=== PATIENT | female | born 1980 | race Caucasian/White ===

== ENCOUNTER 2018-05-02 09:15 | Day surgery (SDC) | payer BC ==
[~2018-05-02 09:15] MED LIST: Lidocaine 1%/Sod Bicarbonate in NS 8.4% 1 ML Syringe IDERM PRN; Sodium Chloride 0.9% 10 ML Syringe FLUSH PRN
[2018-05-02] MEDS: Lactated Ringers 1,000 ML IV SCH ×2 (09:45→11:17)
[2018-05-02] MEDS ORDERED: Scopolamine 1.5 MG Transdermal Patch TRDERM ONE (09:49)
--- NOTE | 2018-05-02 09:49 | PCM.PREANE ---
Preanesthetic Assessment - Anesthesia/Transfusion/Family Hx Anesthesia History: Prior Anesthesia Reaction (PONV- scopalamine patch placed.) Family History of Anesthesia Reaction: No Transfusion History: Prior Transfusion Without Reaction Intubation History: Unknown - Review of Systems General: Fatigue (Patient states sad since news of miscarriage and appetite and energy in down.) Pulmonary: No Symptoms Cardiovascular: No Symptoms Gastrointestinal: No Symptoms, Decreased Appetite, Nausea Neurological: No Symptoms (motion sickness on occasion/history of lower back pain) Other: Reports: None, Easy Bruising - Physical Assessment NPO Status Date: 05/01/18 NPO Status Time: 23:59 Pulse: 72 O2 Sat by Pulse Oximetry: 98 Respiratory Rate: 16 Blood Pressure: 126/76 Temperature: 36.4 C Height: 1.7 m Weight: 122 kg ASA Class: 2 Mental Status: Alert & Oriented x3 Airway Class: Mallampati = 2 Dentition: Reports: Normal Dentition, Caries Thyro-Mental Finger Breadths: 3 Mouth Opening Finger Breadths: 2 ROM/Head Extension: Full Lungs: Clear to Auscultation, Normal Respiratory Effort Cardiovascular: Regular Rate, Regular Rhythm, No Murmurs - Lab Values: Laboratory Last Values WBC 6.98 K/mm3 (3.98-10.04) 05/01/18 10:58 RBC 4.75 M/mm3 (3.98-5.22) 05/01/18 10:58 Hgb 12.9 gm/L (11.2-15.7) 05/01/18 10:58 Hct 39.9 % (34.1-44.9) 05/01/18 10:58 MCV 84.0 fl (79.4-94.8) 05/01/18 10:58 MCH 27.2 pg (25.6-32.2) 05/01/18 10:58 MCHC 32.3 g/dl (32.2-35.5) 05/01/18 10:58 RDW Std Deviation 41.8 fL (36.4-46.3) 05/01/18 10:58 Plt Count 362 K/mm3 (182-369) 05/01/18 10:58 MPV 8.8 fl (9.4-12.3) L 05/01/18 10:58 Neut % (Auto) 61.3 % (34.0-71.1) 05/01/18 10:58 Lymph % (Auto) 28.7 % (19.3-51.7) 05/01/18 10:58 [place] % (Auto) 7.7 % (4.7-12.5) 05/01/18 10:58 Eos % (Auto) 1.9 (0.7-5.8) 05/01/18 10:58 Baso % (Auto) 0.3 % (0.1-1.2) 05/01/18 10:58 Neut # (Auto) 4.28 K/mm3 (1.56-6.13) 05/01/18 10:58 Lymph # (Auto) 2.00 K/mm3 (1.18-3.74) 05/01/18 10:58 [place] # (Auto) 0.54 K/mm3 (0.24-0.36) H 05/01/18 10:58 Eos # (Auto) 0.13 K/mm3 (0.04-0.36) 05/01/18 10:58 Baso # (Auto) 0.02 K/mm3 (0.01-0.08) 05/01/18 10:58 Urine Color Yellow (Yellow) 05/01/18 10:58 Urine Appearance Clear (Clear) 05/01/18 10:58 Urine pH 6.5 (5.0-8.0) 05/01/18 10:58 Ur Specific [place] 1.020 (1.005-1.030) 05/01/18 10:58 Urine Protein Negative (Negative) 05/01/18 10:58 Urine Glucose (UA) Negative (Negative) 05/01/18 10:58 Urine Ketones Negative (Negative) 05/01/18 10:58 Urine Occult Blood Negative (Negative) 05/01/18 10:58 Urine Nitrite Negative (Negative) 05/01/18 10:58 Urine Bilirubin Negative (Negative) 05/01/18 10:58 Urine Urobilinogen 0.2 (0.2-1.0) 05/01/18 10:58 Ur Leukocyte Esterase Negative (Negative) 05/01/18 10:58 Blood Type O POSITIVE 05/01/18 10:58 Above labs reviewed and noted and within acceptable ranges to proceed with scheduled procedure. - Allergies Allergies/Adverse Reactions: Allergies Allergy/AdvReac Type Severity Reaction Status Date / Time meperidine [From [facility]] Allergy Nausea Verified 05/01/18 14:51 - Anesthesia Plan Pre-Op Medication Ordered: None - Acknowledgements Anesthesia Type Planned: General Anesthesia, MAC Pt an Appropriate Candidate for the Planned Anesthesia: Yes Alternatives and Risks of Anesthesia Discussed w Pt/Guardian: Yes Pt/Guardian Understands and Agrees with Anesthesia Plan: Yes PreAnesthesia Questionnaire HEENT History: Reports: Hard of Hearing, Impaired Vision, 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) Other HEENT History: has hearing aids, glasses Cardiovascular History: Reports: None Respiratory History: Reports: None Gastrointestinal History: Reports: Irritable Bowel Syndrome Genitourinary History: Reports: None 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 , 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) Other OB/BYN History: uterine hemorrhage Neurological History: Reports: None Psychiatric History: Reports: None Endocrine/Metabolic History: Reports: None Hematologic History: Reports: None Oncologic (Cancer) History: Reports: None Dermatologic History: Reports: None - Past Surgical History HEENT Surgical History: Reports: Tonsillectomy Cardiovascular Surgical History: Reports: None Respiratory Surgical History: Reports: None GI Surgical History: Reports: Bariatric Procedure Female Surgical History: Reports: None Male Surgical History: Reports: None Endocrine Surgical History: Reports: None Neurological Surgical History: Reports: None Musculoskeletal Surgical History: Reports: 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) Other Musculoskeletal Surgeries/Procedures:: bunion surgery Oncologic Surgical History: Reports: None Dermatological Surgical History: Reports: None - SUBSTANCE USE Smoking Status *Q: Never Smoker Recreational Drug Use History: No - HOME MEDS Home Medications: Home Meds PNV95/Ferrous Fumarate/FA [ Vitamins Tablet] 1 tab PO DAILY 05/01/18 [ History] - CURRENT (IN HOUSE) MEDS Current Meds: Current Medications Lactated Ringer's (Ringers, Lactated) 1,000 mls @ 125 mls/hr IV ASDIRECTED RHETT Stop: 05/02/18 23:00 Lidocaine/Sodium Bicarbonate (Buffered Lidocaine 1% In Ns 8.4%) 0.25 ml IDERM ONETIME PRN PRN Reason: Prior to IV Start Stop: 05/02/18 18:00 Sodium Chloride (Saline Flush) 10 ml FLUSH ASDIRECTED PRN PRN Reason: Keep Vein Open Stop: 05/02/18 18:00
[2018-05-02] MEDS ORDERED: Propofol 200 MG/20 ML SDV ONE ×2 (10:08→10:24)
[2018-05-02] MEDS ORDERED: Midazolam 1 MG/ML 2 ML SDV ONE ×3 (10:10→10:30)
[2018-05-02] MEDS ORDERED: fentaNYL 100 MCG/2 ML SDV ONE ×2 (10:12→10:26)
[2018-05-02] MEDS ORDERED: Ketorolac 30 MG/ML SDV ONE (10:16)
[2018-05-02] MEDS ORDERED: Ondansetron 4 MG/2 ML SDV ONE (10:17)
[2018-05-02] MEDS ORDERED: Ondansetron 4 MG/2 ML SDV IVPUSH PRN (10:45)
--- NOTE | 2018-05-02 10:48 | PCM.OPNOTE ---
- General Post-Op/Procedure Note Date of Surgery/Procedure: 05/02/18 Operative Procedure(s): Dilation and suction curettage Findings: Tissue removed consistent with products of conception. Uterus upper limits normal size. No adnexal abnormalities noted. Pre Op Diagnosis: Blighted ovum Post-Op Diagnosis: Same Anesthesia Technique: MAC Primary Surgeon: Kolby Centeno Secondary Surgeon: Sara Escamilla Anesthesia Provider: Shama Miller Fluid Replacement, Intraop: 700 EBL in mLs: 25 Complications: None Condition: Good Free Text/Narrative:: Surgery duration 4 minutes Procedure: The patient was taken to the operating room and placed in a supine position operating table. She received 2 g of Ancef preoperatively for infection prophylaxis and had sequential compression stockings in place for DVT prophylaxis. After adequate MAC patient was placed in a dorsal lithotomy position. A weighted speculum was placed in the vagina. Cervix is found to be dilated to approximately 0.8 centimeters. Uterus was sounded to approximately 11 cm. It was found to be anterior and mid position. An 8 mm suction curette was then introduced in routine fashion the endometrial cavity was evacuated. Moderate amount tissue was obtained. Findings consistent with products of conception. A medium size sharp curet was introduced and very careful fashion the endometrial cavity was curetted. It was be clear of any further tissue. The suction curet was then reintroduced and small and blood was removed. No further tissue was removed. This point the D&C was discontinued. The single-toothed tenaculum used to stabilize the anterior lip the cervix was removed. Blood was removed from the vagina with a stick sponge and the weighted speculum was removed from the vagina. The patient was discharged from the operating room in good condition.
--- NOTE | 2018-05-02 10:49 | PCM48HPAN ---
Post Anesthesia Note - EVALUATION WITHIN 48HRS OF ANESTHETIC Vital Signs in Normal Range: Yes Patient Participated in Evaluation: Yes Respiratory Function Stable: Yes Airway Patent: Yes Cardiovascular Function Stable: Yes Hydration Status Stable: Yes Pain Control Satisfactory: Yes Nausea and Vomiting Control Satisfactory: Yes Mental Status Recovered: Yes Pulse Rate: 74 SaO2: 96 Resp Rate: 20 Temperature: 36.4 C Blood Pressure: 112/52
[2018-05-02] MEDS ORDERED: HYDROmorphone 0.5 MG/0.5 ML Syringe IVPUSH ONE (11:07)
[2018-05-02] MEDS ORDERED: diphenhydrAMINE 50 MG/ML SDV IVPUSH SCH (11:15)
== END 2018-05-02 13:10 | disposition home or self-care (01) ==
LOC: JD.SDS 09:15
PROVIDERS: ATTEND Obstetrics & Gynecology
DX: O02.0 Blighted ovum and nonhydatidiform mole (principal); Z79.899 Other long term (current) drug therapy
CPT/HCPCS: 36415; 59812; 81003; 85025; 86900; 86901; A9270; J1885; J2250; J2405; J2704; J3010; J7120; 01965

== ENCOUNTER 2019-10-15 05:30 | Inpatient (IN) | payer BC ==
[~2019-10-15 05:30] MED LIST changes: -Lidocaine 1%/Sod Bicarbonate in NS 8.4% 1 ML Syringe IDERM PRN; +Oxytocin/Lactated Ringers 10 UNIT/1,000 ML BAG IV SCH; +Scopolamine 1.5 MG Transdermal Patch TRDERM SCH
[2019-10-15] MEDS: Lactated Ringers 1,000 ML IV SCH ×2 (06:01→06:51)
[2019-10-15] MEDS ORDERED: Citric Acid/Sodium Citrate Solution 30 ML Cup PO ONE (06:30)
[2019-10-15] MEDS ORDERED: Metoclopramide 10 MG/2 ML SDV IVPUSH ONE (06:30)
[2019-10-15] MEDS ORDERED: Citric Acid/Sodium Citrate Solution 30 ML Cup ONE (06:47)
[2019-10-15] MEDS ORDERED: Lactated Ringers 1,000 ML ONE (06:47)
[2019-10-15] MEDS ORDERED: Metoclopramide 10 MG/2 ML SDV ONE (06:47)
[2019-10-15] MEDS ORDERED: Ketorolac 30 MG/ML SDV ONE (07:17)
[2019-10-15] MEDS ORDERED: Lactated Ringers 2,000 ML ONE (07:17)
[2019-10-15] MEDS ORDERED: ceFAZolin 1 GM Vial ONE (07:17)
[2019-10-15] MEDS ORDERED: Ondansetron 4 MG/2 ML SDV ONE (07:17)
[2019-10-15] MEDS ORDERED: Oxytocin 10 Units/1 ML SDV ONE (07:17)
[2019-10-15] MEDS ORDERED: Morphine PF 10 MG/10 ML SDV ONE (07:18)
[2019-10-15] MEDS ORDERED: ceFAZolin 1 GM in Premix Bag 1 BAG IV ONE (07:30)
[2019-10-15] MEDS ORDERED: ceFAZolin 2 GM in Premix Bag 1 BAG IV ONE (07:30)
--- NOTE | 2019-10-15 07:36 | PCM.PREANE ---
Preanesthetic Assessment - Anesthesia/Transfusion/Family Hx Anesthesia History: Prior Anesthesia Reaction Type of Anesthesia Reaction: Excessive Nausea/Vomiting Family History of Anesthesia Reaction: No Transfusion History: Prior Transfusion Without Reaction Intubation History: Unknown - Review of Systems General: No Symptoms Pulmonary: No Symptoms Cardiovascular: No Symptoms Gastrointestinal: No Symptoms Neurological: No Symptoms Other: Reports: Easy Bruising (1800) - Physical Assessment NPO Status Date: 10/14/19 NPO Status Time: 18:00 Vital Signs: Last Vital Signs Temp 36.6 C 10/15/19 05:47 Pulse 76 10/15/19 05:47 Resp 14 10/15/19 05:47 BP 122/91 H 10/15/19 06:03 Pulse Ox 98 10/15/19 05:47 Height: 1.7 m Weight: 124.738 kg ASA Class: 2 Mental Status: Alert & Oriented x3 Airway Class: Mallampati = 2 Dentition: Reports: Normal Dentition, Caries Thyro-Mental Finger Breadths: 3 Mouth Opening Finger Breadths: 3 ROM/Head Extension: Full Lungs: Clear to Auscultation, Normal Respiratory Effort Cardiovascular: Regular Rate, Regular Rhythm, No Murmurs - Lab Values: Laboratory Last Values WBC 6.57 K/mm3 (3.98-10.04) 10/15/19 05:50 RBC 3.99 M/mm3 (3.98-5.22) 10/15/19 05:50 Hgb 11.0 gm/dl (11.2-15.7) L 10/15/19 05:50 Hct 34.8 % (34.1-44.9) 10/15/19 05:50 MCV 87.2 fl (79.4-94.8) 10/15/19 05:50 MCH 27.6 pg (25.6-32.2) 10/15/19 05:50 MCHC 31.6 g/dl (32.2-35.5) L 10/15/19 05:50 RDW Std Deviation 46.1 fL (36.4-46.3) 10/15/19 05:50 Plt Count 311 K/mm3 (182-369) 10/15/19 05:50 MPV 9.0 fl (9.4-12.3) L 10/15/19 05:50 Neut % (Auto) 64.2 % (34.0-71.1) 10/15/19 05:50 Lymph % (Auto) 25.7 % (19.3-51.7) 10/15/19 05:50 [place] % (Auto) 9.1 % (4.7-12.5) 10/15/19 05:50 Eos % (Auto) 0.6 (0.7-5.8) L 10/15/19 05:50 Baso % (Auto) 0.2 % (0.1-1.2) 10/15/19 05:50 Neut # (Auto) 4.22 K/mm3 (1.56-6.13) 10/15/19 05:50 Lymph # (Auto) 1.69 K/mm3 (1.18-3.74) 10/15/19 05:50 [place] # (Auto) 0.60 K/mm3 (0.24-0.36) H 10/15/19 05:50 Eos # (Auto) 0.04 K/mm3 (0.04-0.36) 10/15/19 05:50 Baso # (Auto) 0.01 K/mm3 (0.01-0.08) 10/15/19 05:50 Blood Type O POSITIVE 10/15/19 05:50 Gel Antibody Screen Negative 10/15/19 05:50 - Allergies Allergies/Adverse Reactions: Allergies Allergy/AdvReac Type Severity Reaction Status Date / Time adhesive Allergy Hives Verified 10/14/19 14:26 meperidine [From Demerol] AdvReac Nausea Verified 10/14/19 14:26 - Anesthesia Plan Pre-Op Medication Ordered: None - Acknowledgements Anesthesia Type Planned: Spinal Pt an Appropriate Candidate for the Planned Anesthesia: Yes Alternatives and Risks of Anesthesia Discussed w Pt/Guardian: Yes Pt/Guardian Understands and Agrees with Anesthesia Plan: Yes PreAnesthesia Questionnaire HEENT History: Reports: Hard of Hearing, Impaired Vision, 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) Other HEENT History: has hearing aids, glasses Cardiovascular History: Reports: None Respiratory History: Reports: None Gastrointestinal History: Reports: Irritable Bowel Syndrome Genitourinary History: Reports: None 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: , 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 , 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) Other OB/BYN History: uterine hemorrhage after SAB, D&C x3, Section in 2017 Neurological History: Reports: None Psychiatric History: Reports: Anxiety Endocrine/Metabolic History: Reports: None Hematologic History: Reports: None Oncologic (Cancer) History: Reports: None Dermatologic History: Reports: None - Past Surgical History HEENT Surgical History: Reports: Adenoidectomy, Tonsillectomy Respiratory Surgical History: Reports: None GI Surgical History: Reports: Bariatric Procedure, Cholecystectomy, EGD Other GI Surgeries/Procedures: Gastric Bypass Female Surgical History: Reports: Section, D&C, 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) Other Female Surgeries/Procedures: Hysterscopy to remove uterine septum Endocrine Surgical History: Reports: None Musculoskeletal Surgical History: Reports: 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) Other Musculoskeletal Surgeries/Procedures:: bunion surgery - SUBSTANCE USE Smoking Status *Q: Never Smoker Second Hand Smoke Exposure: No Recreational Drug Use History: No - HOME MEDS Home Medications: Home Meds Pnv No.95/Ferrous Fum/Folic AC [ Vitamins Tablet] 1 tab PO DAILY [History] Folic Acid 1 mg PO DAILY 10/14/19 [History] Iron 18 mg PO DAILY 10/14/19 [History] - CURRENT (IN HOUSE) MEDS Current Meds: Current Medications Cefazolin Sodium/Dextrose 2 gm (/ Premix) 50 mls @ 100 mls/hr IV ONETIME ONE Stop: 10/15/19 07:59 Cefazolin Sodium/Dextrose 1 gm (/ Premix) 50 mls @ 100 mls/hr IV ONETIME ONE Stop: 10/15/19 07:59 Lactated Ringer's (Ringers, Lactated) 1,000 mls @ 125 mls/hr IV ASDIRECTED RHETT Last Admin: 10/15/19 06:51 Dose: 125 mls/hr Oxytocin/Lactated Ringer's (Pitocin In Lr 10 Units/1,000 Ml) 10 unit in 1,000 mls @ 100 mls/hr IV ASDIRECTED RHETT; Protocol Scopolamine (Transderm-Scop) 1.5 mg TRDERM ONETIME RHETT Stop: 10/15/19 16:00 Sodium Chloride (Saline Flush) 10 ml FLUSH ASDIRECTED PRN PRN Reason: Keep Vein Open Discontinued Medications Citric Acid/Sodium Citrate (Bicitra Solution) 30 ml PO ONETIME ONE Stop: 10/15/19 06:31 Last Admin: 02/27/20 06:51 Dose: 30 ml Metoclopramide HCl (Reglan) 10 mg IVPUSH ONETIME ONE Stop: 10/15/19 06:31 Last Admin: 10/15/19 06:52 Dose: 10 mg
[2019-10-15] MEDS ORDERED: ePHEDrine Sulfate/0.9% NaCl/Pf 25 MG/5 ML SYRINGE IV ONE ×2 (08:12→08:38)
[2019-10-15] MEDS ORDERED: Haloperidol Lactate 5 MG/ML SDV IVPUSH ONE (08:16)
[2019-10-15] MEDS ORDERED: fentaNYL 100 MCG/2 ML SDV IVPUSH PRN (08:16)
[2019-10-15] MEDS ORDERED: diphenhydrAMINE 50 MG/ML SDV IVPUSH PRN (08:16)
[2019-10-15] MEDS ORDERED: ePHEDrine 50 MG/ML SDV IVPUSH PRN (08:16)
[2019-10-15] MEDS ORDERED: Ondansetron 4 MG/2 ML SDV IVPUSH PRN (08:16)
[2019-10-15] MEDS ORDERED: HYDROmorphone 0.5 MG/0.5 ML Syringe IVPUSH PRN (08:16)
[2019-10-15] MEDS ORDERED: Phenylephrine 1 MG in Sodium Chloride 0.9% 10 ML IV SCH (08:30)
--- NOTE | 2019-10-15 09:04 | PCM.OPNOTE ---
- General Post-Op/Procedure Note Date of Surgery/Procedure: 10/15/19 Operative Procedure(s): Repeat low transverse Findings: Minimal scarring between the rectus and fascia. Minimal scar tissue between the bladder and uterus. Baby girl in a vertex presentation. APGARS of 8 & 9. Weight of 8 lbs 7 oz. Normal appearance of the uterus, fallopian tubes, and ovaries. Pre Op Diagnosis: Hx of . 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 Speed/safety of procedure Pathology: Cord blood collected. Placenta discarded Fluid Replacement, Intraop: 900 Output, Urine Amount: 100 EBL in mLs: 700 Complications: None Condition: Good Free Text/Narrative:: The risks, benefits, indications, potential complications, and alternatives were explained to the patient and informed consent obtained. After induction of anesthesia, the patient was placed in a supine position and then draped and prepped in the usual sterile manner. A Pfannenstiel incision was made and carried down through the subcutaneous tissue to the fascia. Fascial incision was made and extended transversely. The fascia was from the underlying rectus tissue superiorly and inferiorly. The peritoneum was identified and entered. Peritoneal incision was extended longitudinally. No bladder flap made. A low transverse uterine incision was made sharply with a scalpel and extended bluntly in a cephalocaudad direction. A baby girl was delivered from a vertex presentation with APGARS as above. After the umbilical cord was clamped and cut cord blood was obtained for evaluation. The placenta was removed intact and appeared normal. The uterus was exteriorized and cleared of clots. The uterine outline, tubes and ovaries appeared normal. The uterine incision was closed with running locked sutures of 0 Vicryl. Hemostasis was obtained with a second imbricating layer of 0 vicryl. The uterus was then placed back into the abdomen. The infracolic gutters were cleared of blood clots. The fascia was then reapproximated with running sutures of 0 Vicryl. The subcutaneous tissue was irrigated with sterile warm normal saline, hemostasis obtained with cautery. This layer was also closed with a running 0 vicryl. The skin was reapproximated with running Subcuticular 4-0 monocryl sutures. Instrument, sponge, and needle counts were correct prior the abdominal closure and at the conclusion of the case.
--- NOTE | 2019-10-15 09:07 | PCM.POSTAN ---
POST ANESTHESIA ASSESSMENT - MENTAL STATUS Mental Status: Alert - VITAL SIGNS Vital Signs: Last Vital Signs Temp 97.3 10/15/19 Pulse 58 10/15/19 Resp 12 10/15/19 BP 107/52 10/15/19 Pulse Ox 94 10/15/19 - RESPIRATORY Respiratory Status: Respiratory Rate WNL, Airway Patent, O2 Saturation Stable - CARDIOVASCULAR CV Status: Pulse Rate WNL, Blood Pressure Stable - GASTROINTESTINAL GI Status: No Symptoms - POST OP HYDRATION Hydration Status: Adequate & Stable
[2019-10-15] MEDS ORDERED: Naloxone 0.4 MG/ML SDV IVPUSH PRN (11:25)
[2019-10-15] MEDS ORDERED: Acetaminophen/oxyCODONE 325-5 MG Tab PO PRN (11:25)
[2019-10-15] MEDS ORDERED: Ondansetron 4 MG/2 ML SDV IV PRN (11:25)
[2019-10-15] MEDS ORDERED: Dextrose 5%-Lactated Ringers 1,000 ML IV SCH (11:25)
[2019-10-15] MEDS: Ketorolac 30 MG/ML SDV IVPUSH SCH ×2 (14:55→20:41)
[2019-10-16] MEDS: Ketorolac 30 MG/ML SDV IVPUSH SCH (04:18)
--- NOTE | 2019-10-16 06:58 | PCM.PNPP ---
- General Info Date of Service: 10/16/19 Functional Status: Reports: Pain Controlled, Tolerating Diet, Ambulating - Review of Systems General: Reports: No Symptoms Pulmonary: Reports: No Symptoms Cardiovascular: Reports: No Symptoms Gastrointestinal: Reports: Abdominal Pain (managed with medications) Genitourinary: Reports: No Symptoms Musculoskeletal: Reports: No Symptoms - Patient Data Vital Signs - Most Recent: Last Vital Signs Temp 37.2 C 10/16/19 04:26 Pulse 73 10/16/19 04:27 Resp 18 10/16/19 06:00 BP 125/64 10/16/19 04:26 Pulse Ox 97 10/16/19 06:00 Weight - Most Recent: 124.738 kg I&O - Last 24 Hours: Intake & Output 10/15/19 10/15/19 10/16/19 14:59 22:59 06:59 Intake Total 250 1380 1000 Output Total 209 018 2003 Balance 50 830 -1025 Lab Results - Last 24 Hours: Laboratory Results - last 24 hr 10/15/19 10/16/19 Range/Units 05:50 05:40 WBC 6.75 (3.98-10.04) K/mm3 RBC 3.24 L (3.98-5.22) M/mm3 Hgb 8.9 L D (11.2-15.7) gm/dl Hct 29.5 L (34.1-44.9) % MCV 91.0 D (79.4-94.8) fl MCH 27.5 (25.6-32.2) pg MCHC 30.2 L (32.2-35.5) g/dl RDW Std Deviation 48.4 H (36.4-46.3) fL Plt Count 243 (182-369) K/mm3 MPV 9.8 (9.4-12.3) fl RPR Non-reactive (NONREACTIVE) Med Orders - Current: Current Medications Ibuprofen (Motrin) 600 mg PO Q6H PRN PRN Reason: mild pain or fever Naloxone HCl (Narcan) 0.1 mg IVPUSH SEECOMMENT PRN PRN Reason: Respiratory Depression Ondansetron HCl (Zofran) 4 mg IV Q8H PRN PRN Reason: Nausea/Vomiting Oxycodone/Acetaminophen (Percocet 325-5 Mg) 1 tab PO Q4H PRN PRN Reason: Pain (moderate 4-6) Oxycodone/Acetaminophen (Percocet 325-5 Mg) 2 tab PO Q4H PRN PRN Reason: Pain (severe 7-10) Discontinued Medications Citric Acid/Sodium Citrate (Bicitra Solution) 30 ml PO ONETIME ONE Stop: 10/15/19 06:31 Last Admin: 10/15/19 06:51 Dose: 30 ml Diphenhydramine HCl (Benadryl) 25 mg IVPUSH Q6H PRN PRN Reason: pruritis Stop: 10/15/19 12:00 Ephedrine Sulfate (Ephedrine Sulfate) 5 mg IVPUSH ASDIRECTED PRN PRN Reason: Hypotension Stop: 10/15/19 12:00 Fentanyl (Sublimaze) 50 mcg IVPUSH Q5M PRN PRN Reason: Pain Stop: 10/15/19 12:00 Haloperidol Lactate (Haldol) 1 mg IVPUSH ONETIME ONE Stop: 10/15/19 08:17 Last Admin: 10/15/19 11:40 Dose: Not Given Hydromorphone HCl (Dilaudid) 0.5 mg IVPUSH Q15M PRN PRN Reason: Pain (severe 7-10) Stop: 10/15/19 12:00 Cefazolin Sodium/Dextrose 2 gm (/ Premix) 50 mls @ 100 mls/hr IV ONETIME ONE Stop: 10/15/19 07:59 Last Admin: 10/16/19 00:56 Dose: Not Given Cefazolin Sodium/Dextrose 1 gm (/ Premix) 50 mls @ 100 mls/hr IV ONETIME ONE Stop: 10/15/19 07:59 Last Admin: 10/16/19 00:56 Dose: Not Given Lactated Ringer's (Ringers, Lactated) 1,000 mls @ 125 mls/hr IV ASDIRECTED RHETT Last Admin: 10/15/19 06:51 Dose: 125 mls/hr Oxytocin/Lactated Ringer's (Pitocin In Lr 10 Units/1,000 Ml) 10 unit in 1,000 mls @ 100 mls/hr IV ASDIRECTED RHETT; Protocol Phenylephrine HCl 1 mg/ Sodium (Chloride) 10.1 mls @ 1 mls/sec IV TITRATE HRETT; Protocol Stop: 10/15/19 12:00 Dextrose/Lactated Ringer's (Dextrose 5%-Lactated Ringers) 1,000 mls @ 125 mls/ hr IV ASDIRECTED RHETT Stop: 10/15/19 19:24 Last Admin: 10/15/19 12:38 Dose: 125 mls/hr Ketorolac Tromethamine (Toradol) 30 mg IVPUSH Q6H RHETT Stop: 10/16/19 02:46 Last Admin: 10/16/19 04:18 Dose: 30 mg Metoclopramide HCl (Reglan) 10 mg IVPUSH ONETIME ONE Stop: 10/15/19 06:31 Last Admin: 10/15/19 06:52 Dose: 10 mg Ondansetron HCl (Zofran) 4 mg IVPUSH ONETIME PRN PRN Reason: Nausea/Vomiting Stop: 10/15/19 12:00 Scopolamine (Transderm-Scop) 1.5 mg TRDERM ONETIME RHETT Stop: 10/15/19 16:00 Last Admin: 10/15/19 07:36 Dose: 1.5 mg Sodium Chloride (Saline Flush) 10 ml FLUSH ASDIRECTED PRN PRN Reason: Keep Vein Open - Interaction Infant Disposition, : in Room with Family Infant Interaction: Holding Feeding: Bottle Fed Support Person: - Recovery Exam Fundal Tone: Firm Fundal Level: At Umbilicus Fundal Placement: Midline Lochia Amount: Small Lochia Color: Rubra/Red Perineum Description: Intact, Minimal Bruising/Swelling Episiotomy/Laceration: None - Exam General: Alert, Oriented, Cooperative Lungs: Clear to Auscultation, Normal Respiratory Effort Cardiovascular: Regular Rate, Regular Rhythm GI/Abdominal Exam: Soft, Tender (appropriate post op) Extremities: Normal Inspection Skin: Warm, Dry, Intact Wound/Incisions: Healing Well, No Drainage - Problem List & Annotations (1) History of SNOMED Code(s): 146949771 Code(s): Z98.891 - HISTORY OF UTERINE SCAR FROM PREVIOUS SURGERY Status: Acute Current Visit: Yes (2) S/P repeat low transverse SNOMED Code(s): 511958601, 02291498, 877399462, 010334917, 523186722 Code(s): Z98.891 - HISTORY OF UTERINE SCAR FROM PREVIOUS SURGERY Status: Acute Current Visit: Yes - Problem List Review Problem List Initiated/Reviewed/Updated: Yes - My Orders Last 24 Hours: My Active Orders 10/15/19 11:25 Activity as Tolerated [RC] .Routine Antiembolic Devices [RC] PER UNIT ROUTINE Communication Order [RC] PER UNIT ROUTINE Intake and Output [RC] Q4H Notify Provider Intake and Out [RC] ASDIRECTED RT Incentive Spirometry [RC] Q2HWA Acetaminophen/oxyCODONE [Percocet 325-5 MG] 1 tab PO Q4H PRN Acetaminophen/oxyCODONE [Percocet 325-5 MG] 2 tab PO Q4H PRN Naloxone [Narcan] 0.1 mg IVPUSH SEECOMMENT PRN Ondansetron [Zofran] 4 mg IV Q8H PRN Assess Lochia [WOMSER] Per Unit Routine Assess Uterine Involution [WOMSER] Per Unit Routine Breast Pump [WOMSER] Per Unit Routine Heat Therapy [OM.PC] Per Unit Routine Peripheral IV Discontinue [OM.PC] Routine Sequential Compression Device [OM.PC] Per Unit Routine 10/15/19 Breakfast Regular Diet [DIET] 10/16/19 08:45 Ibuprofen [Motrin] 600 mg PO Q6H PRN 10/16/19 09:05 Urinary Catheter Removal [RC] Per Unit Routine - Assessment Assessment:: POD#1 - Plan Plan:: * Routine cares * CBC pending * Discharge home in 1-2 days
[2019-10-16] MEDS: Ibuprofen 600 MG Tab PO PRN ×2 (09:53→18:15)
--- NOTE | 2019-10-16 12:07 | PCM48HPAN ---
Post Anesthesia Note - EVALUATION WITHIN 48HRS OF ANESTHETIC Vital Signs in Normal Range: Yes Patient Participated in Evaluation: Yes Respiratory Function Stable: Yes Airway Patent: Yes Cardiovascular Function Stable: Yes Hydration Status Stable: Yes Pain Control Satisfactory: Yes Nausea and Vomiting Control Satisfactory: Yes Mental Status Recovered: Yes Vital Signs: Last Vital Signs Temp 36.4 C 10/16/19 08:23 Pulse 69 10/16/19 08:23 Resp 18 10/16/19 08:00 BP 135/85 10/16/19 08:23 Pulse Ox 96 10/16/19 08:23
[2019-10-16] MEDS: Acetaminophen/oxyCODONE 325-5 MG Tab PO PRN ×2 (14:34→23:05)
[2019-10-16] MEDS ORDERED: Docusate Sodium 100 MG Cap PO PRN (18:36)
[2019-10-17] MEDS: Ibuprofen 600 MG Tab PO PRN (01:59)
[2019-10-17] MEDS: Acetaminophen/oxyCODONE 325-5 MG Tab PO PRN (06:16)
--- NOTE | 2019-10-17 10:13 | PCM.SN ---
- Free Text/Narrative Note: Post Operative Progress Note POD # 2 Subjective: Doing well overall. Ambulating slowly without difficulty. Lochia minimal and is decreasing. Urinating without difficulty. Had a bowel movement this morning. Tolerating regular diet without nausea or vomiting. Pain controlled with oral medications. Bottlefeeding with minimal difficulty. Objective: Vitals: Vital Signs - 24 hr 10/16/19 10/16/19 10/16/19 16:02 20:11 20:12 Temperature 36.5 C 36.6 C Pulse, 82 71 Peripheral Respiratory 16 Rate Blood Pressure 130/78 141/71 H 138/70 O2 Sat by Pulse 95 93 L Oximetry 10/17/19 10/17/19 04:07 08:00 Temperature 36.9 C 36.3 C Pulse, 64 76 Peripheral Respiratory 16 18 Rate Blood Pressure 132/72 136/77 O2 Sat by Pulse 93 L 95 Oximetry Physical Exam General: Alert and oriented, no acute distress Lungs: Clear to auscultation bilaterally Heart: Regular rate and rhythm Abdomen: Soft, minimal appropriate tenderness, non-distended, fundus midline, nontender and at the umbilicus Incision: Clean, dry and intact, no erythema, bleeding or drainage with Dermabond skin glue over the incision Extremities: Trace edema in bilateral lower extremities to ankles Labs: Laboratory Tests 10/15/19 10/15/19 10/15/19 Range/Units 05:50 05:50 05:50 WBC 6.57 (3.98-10.04) K/mm3 RBC 3.99 (3.98-5.22) M/mm3 Hgb 11.0 L (11.2-15.7) gm/dl Hct 34.8 (34.1-44.9) % MCV 87.2 (79.4-94.8) fl MCH 27.6 (25.6-32.2) pg MCHC 31.6 L (32.2-35.5) g/dl RDW Std Deviation 46.1 (36.4-46.3) fL Plt Count 311 (182-369) K/mm3 MPV 9.0 L (9.4-12.3) fl Neut % (Auto) 64.2 (34.0-71.1) % Lymph % (Auto) 25.7 (19.3-51.7) % [place] % (Auto) 9.1 (4.7-12.5) % Eos % (Auto) 0.6 L (0.7-5.8) Baso % (Auto) 0.2 (0.1-1.2) % Neut # (Auto) 4.22 (1.56-6.13) K/mm3 Lymph # (Auto) 1.69 (1.18-3.74) K/mm3 [place] # (Auto) 0.60 H (0.24-0.36) K/mm3 Eos # (Auto) 0.04 (0.04-0.36) K/mm3 Baso # (Auto) 0.01 (0.01-0.08) K/mm3 RPR Non-reactive (NONREACTIVE) Blood Type O POSITIVE Gel Antibody Screen Negative 10/16/19 Range/Units 05:40 WBC 6.75 (3.98-10.04) K/mm3 RBC 3.24 L (3.98-5.22) M/mm3 Hgb 8.9 L D (11.2-15.7) gm/dl Hct 29.5 L (34.1-44.9) % MCV 91.0 D (79.4-94.8) fl MCH 27.5 (25.6-32.2) pg MCHC 30.2 L (32.2-35.5) g/dl RDW Std Deviation 48.4 H (36.4-46.3) fL Plt Count 243 (182-369) K/mm3 MPV 9.8 (9.4-12.3) fl Neut % (Auto) (34.0-71.1) % Lymph % (Auto) (19.3-51.7) % [place] % (Auto) (4.7-12.5) % Eos % (Auto) (0.7-5.8) Baso % (Auto) (0.1-1.2) % Neut # (Auto) (1.56-6.13) K/mm3 Lymph # (Auto) (1.18-3.74) K/mm3 [place] # (Auto) (0.24-0.36) K/mm3 Eos # (Auto) (0.04-0.36) K/mm3 Baso # (Auto) (0.01-0.08) K/mm3 RPR (NONREACTIVE) Blood Type Gel Antibody Screen ASSESSMENT: 39-year-old female -0-0-2 s/p repeat section POD #2 for history of section, complicated by anxiety, history of gastric bypass and anemia PLAN: Doing well Bottlefeeding with minimal difficulty. Assist as needed Incision healing well. Continue to keep clean and dry. Lochia minimal. Continue to monitor for appropriate lochia. Continue routine post-operative care Recommend for patient to start iron supplementation for hemoglobin of 8.9. Recommend for her to take 1 tablet daily. Discharge home today Petar Goode MD 10:12 AM 10/17/2019
--- NOTE | 2019-10-17 10:19 | PCM.DCSUM1 ---
Discharge Summary - Hospital Course Free Text/Narrative:: - General Post-Op/Procedure Note Date of Surgery/Procedure: 10/15/19 Operative Procedure(s): Repeat low transverse Findings: Minimal scarring between the rectus and fascia. Minimal scar tissue between the bladder and uterus. Baby girl in a vertex presentation. APGARS of 8 & 9. Weight of 8 lbs 7 oz. Normal appearance of the uterus, fallopian tubes, and ovaries. Pre Op Diagnosis: Hx of . 39 wks gestation Post-Op Diagnosis: Same Anesthesia Technique: Spinal Primary Surgeon: Bisi Rayo Secondary Surgeon: Josie Chiang Anesthesia Provider: Stacey Polanco Reason Staff Nurse Anesthetist Was Necessary: BMI of patient. Speed/safety of procedure Pathology: Cord blood collected. Placenta discarded Fluid Replacement, Intraop: 900 Output, Urine Amount: 100 EBL in mLs: 700 Complications: None Condition: Good Free Text/Narrative:: The risks, benefits, indications, potential complications, and alternatives were explained to the patient and informed consent obtained. After induction of anesthesia, the patient was placed in a supine position and then draped and prepped in the usual sterile manner. A Pfannenstiel incision was made and carried down through the subcutaneous tissue to the fascia. Fascial incision was made and extended transversely. The fascia was from the underlying rectus tissue superiorly and inferiorly. The peritoneum was identified and entered. Peritoneal incision was extended longitudinally. No bladder flap made. A low transverse uterine incision was made sharply with a scalpel and extended bluntly in a cephalocaudad direction. A baby girl was delivered from a vertex presentation with APGARS as above. After the umbilical cord was clamped and cut cord blood was obtained for evaluation. The placenta was removed intact and appeared normal. The uterus was exteriorized and cleared of clots. The uterine outline, tubes and ovaries appeared normal. The uterine incision was closed with running locked sutures of 0 Vicryl. Hemostasis was obtained with a second imbricating layer of 0 vicryl. The uterus was then placed back into the abdomen. The infracolic gutters were cleared of blood clots. The fascia was then reapproximated with running sutures of 0 Vicryl. The subcutaneous tissue was irrigated with sterile warm normal saline, hemostasis obtained with cautery. This layer was also closed with a running 0 vicryl. The skin was reapproximated with running Subcuticular 4-0 monocryl sutures. Instrument, sponge, and needle counts were correct prior the abdominal closure and at the conclusion of the case. HPI Initial Comments: - General Post-Op/Procedure Note Date of Surgery/Procedure: 10/15/19 Operative Procedure(s): Repeat low transverse Findings: Minimal scarring between the rectus and fascia. Minimal scar tissue between the bladder and uterus. Baby girl in a vertex presentation. APGARS of 8 & 9. Weight of 8 lbs 7 oz. Normal appearance of the uterus, fallopian tubes, and ovaries. Pre Op Diagnosis: Hx of . 39 wks gestation Post-Op Diagnosis: Same Anesthesia Technique: Spinal Primary Surgeon: Bisi Rayo Secondary Surgeon: Josie Chiang Anesthesia Provider: Stacey Polanco Reason Staff Nurse Anesthetist Was Necessary: BMI of patient. Speed/safety of procedure Pathology: Cord blood collected. Placenta discarded Fluid Replacement, Intraop: 900 Output, Urine Amount: 100 EBL in mLs: 700 Complications: None Condition: Good Free Text/Narrative:: The risks, benefits, indications, potential complications, and alternatives were explained to the patient and informed consent obtained. After induction of anesthesia, the patient was placed in a supine position and then draped and prepped in the usual sterile manner. A Pfannenstiel incision was made and carried down through the subcutaneous tissue to the fascia. Fascial incision was made and extended transversely. The fascia was from the underlying rectus tissue superiorly and inferiorly. The peritoneum was identified and entered. Peritoneal incision was extended longitudinally. No bladder flap made. A low transverse uterine incision was made sharply with a scalpel and extended bluntly in a cephalocaudad direction. A baby girl was delivered from a vertex presentation with APGARS as above. After the umbilical cord was clamped and cut cord blood was obtained for evaluation. The placenta was removed intact and appeared normal. The uterus was exteriorized and cleared of clots. The uterine outline, tubes and ovaries appeared normal. The uterine incision was closed with running locked sutures of 0 Vicryl. Hemostasis was obtained with a second imbricating layer of 0 vicryl. The uterus was then placed back into the abdomen. The infracolic gutters were cleared of blood clots. The fascia was then reapproximated with running sutures of 0 Vicryl. The subcutaneous tissue was irrigated with sterile warm normal saline, hemostasis obtained with cautery. This layer was also closed with a running 0 vicryl. The skin was reapproximated with running Subcuticular 4-0 monocryl sutures. Instrument, sponge, and needle counts were correct prior the abdominal closure and at the conclusion of the case. Brief History: - General Post-Op/Procedure Note. Date of Surgery/Procedure: . Operative Procedure(s): Repeat low transverse . Findings: Minimal scarring between the rectus and fascia. Minimal scar tissue between the bladder and uterus. Baby girl in a vertex presentation. APGARS of 8 & 9. Weight of 8 lbs 7 oz. Normal appearance of the uterus, fallopian tubes, and ovaries. Pre Op Diagnosis: Hx of . 39 wks gestation. Post-Op Diagnosis: Same. Anesthesia Technique: Spinal. Primary Surgeon: Bisi Rayo. Secondary Surgeon: Josie Chiang. Anesthesia Provider: Stacey Polanco. Reason Staff Nurse Anesthetist Was Necessary: BMI of patient. Speed/ safety of procedure. Pathology: Cord blood collected. Placenta discarded. Fluid Replacement, Intraop: 900. Output, Urine Amount: 100. EBL in mLs: 700. Complications: None. Condition: Good. Free Text/Narrative:: The risks, benefits, indications, potential complications, and alternatives were explained to the patient and informed consent obtained. After induction of anesthesia, the patient was placed in a supine position and then draped and prepped in the usual sterile manner. A Pfannenstiel incision was made and carried down through the subcutaneous tissue to the fascia. Fascial incision was made and extended transversely. The fascia was from the underlying rectus tissue superiorly and inferiorly. The peritoneum was identified and entered. Peritoneal incision was extended longitudinally. No bladder flap made. A low transverse uterine incision was made sharply with a scalpel and extended bluntly in a cephalocaudad direction. A baby girl was delivered from a vertex presentation with APGARS as above. After the umbilical cord was clamped and cut cord blood was obtained for evaluation. The placenta was removed intact and appeared normal. The uterus was exteriorized and cleared of clots. The uterine outline, tubes and ovaries appeared normal. The uterine incision was closed with running locked sutures of 0 Vicryl. Hemostasis was obtained with a second imbricating layer of 0 vicryl. The uterus was then placed back into the abdomen. The infracolic gutters were cleared of blood clots. The fascia was then reapproximated with running sutures of 0 Vicryl. The subcutaneous tissue was irrigated with sterile warm normal saline, hemostasis obtained with cautery. This layer was also closed with a running 0 vicryl. The skin was reapproximated with running Subcuticular 4-0 monocryl sutures. Instrument, sponge, and needle counts were correct prior the abdominal closure and at the conclusion of the case. Diagnosis: Stroke: No - Discharge Data Discharge Date: 10/17/19 Discharge Disposition: Home, Self-Care 01 Condition: Good - Referral to Home Health Primary Care Physician: Kolby Centeno MD - Discharge Diagnosis/Problem(s) (1) History of SNOMED Code(s): 968370842 ICD Code: Z98.891 - HISTORY OF UTERINE SCAR FROM PREVIOUS SURGERY Status: Acute Current Visit: Yes (2) S/P repeat low transverse SNOMED Code(s): 263855180, [id number], [id number], [id number], [id number] ICD Code: Z98.891 - HISTORY OF UTERINE SCAR FROM PREVIOUS SURGERY Status: Acute Current Visit: Yes - Patient Summary/Data Operative Procedure(s) Performed: Repeat low transverse Complications: Mild anemia in postoperative state Consults: None Hospital Course: Tracy Maldonado was admitted for scheduled repeat section. She was taken back to the OR and given spinal injection for anesthesia. She was prepped and draped in the normal fashion. On 10/15/2019 she had a normal repeat delivery of a live female at 08:26. Apgars of 8 and 9. Weight of 3830 g (8 pounds 7.1 ounces). She was closed in a normal fashion with Dermabond skin glue covering the incision. There were no complications with the procedure. Please see the operative report for full details. Her post operative course was uneventful. Her pain was well controlled and she had minimal lochia. She was ambulating, tolerating a regular diet and voiding normally. She was passing flatus and has had a bowel movement. She was bottle feeding without difficulty. She was afebrile and her hematocrit was 29.5 on POD #1.she was reporting some mild fatigue with ambulation and was started on iron supplementation on postoperative day #2. She desired to be discharged home on the morning of POD #2. Her blood type is O+. - Patient Instructions Diet: Regular Diet as Tolerated Activity: Apply Ice, As Tolerated, No Lifting Over 20 Pounds Activity, Other: Nothing in the vagina for 6 weeks Driving: Do Not Drive (While taking narcotic medications or having significant pain) Showering/Bathing: May Shower Wound/Incision Care: Keep Operative Site/Wound Site Clean and Dry Notify Provider of: Fever, Increased Pain, Swelling and Redness, Drainage, Nausea and/or Vomiting Other/Special Instructions: Please contact your physician's office if you note any bleeding or pus coming from the abdominal incision. Please contact your physician's office if you have heavy vaginal bleeding enough to soak a pad in less than an hour for several hours. Monitor for any signs of an infection in the breasts with severe pain or redness of the breast. You can help with decreasing the amount of breast milk production by wearing a tight fitting sports bra or wearing an Tian bandage wrap, using cold compresses and avoid nipple stimulation. Do not try to express milk if you do start to produce milk as this will cause increased amount of breast milk production. - Discharge Plan *PRESCRIPTION DRUG MONITORING PROGRAM REVIEWED*: Yes *COPY OF PRESCRIPTION DRUG MONITORING REPORT IN PATIENT MATTHEW: Yes Prescriptions/Med Rec: Acetaminophen/oxyCODONE [Percocet 325-5 MG] 1 - 2 tab PO Q6H PRN #30 tablet PRN Reason: Pain Home Medications: Home Meds Pnv No.95/Ferrous Fum/Folic AC [ Vitamins Tablet] 1 tab PO DAILY [History] Folic Acid 1 mg PO DAILY 10/14/19 [History] Acetaminophen/oxyCODONE [Percocet 325-5 MG] 1 - 2 tab PO Q6H PRN #30 tablet [Rx] Docusate Sodium [Colace] 100 mg PO BID PRN cap 10/17/19 [Rx] Ferrous Sulfate 324 mg PO WITHBREAKFAST tab.ec 10/17/19 [Rx] Ibuprofen [Motrin] 600 mg PO Q6H PRN tablet 10/17/19 [Rx] Patient Handouts: Delivery, Care After, Home Care Instructions for Mom Referrals: Bisi Rayo MD [Physician] - (Follow-up in 2 weeks for routine postoperative appointment or earlier as needed.) - Discharge Summary/Plan Comment DC Time >30 min.: No - Patient Data Vitals - Most Recent: Last Vital Signs Temp 36.3 C 10/17/19 08:00 Pulse 76 10/17/19 08:00 Resp 18 10/17/19 08:00 BP 136/77 10/17/19 08:00 Pulse Ox 95 10/17/19 08:00 Weight - Most Recent: 124.738 kg I&O - Last 24 hours: Intake & Output 10/16/19 10/17/19 10/17/19 22:59 06:59 14:59 Intake Total 120 Balance 120 Lab Results - Last 24 hrs: Laboratory Results - last 24 hr 10/15/19 Range/Units 05:50 Blood Type O POSITIVE Gel Antibody Screen Negative Med Orders - Current: Current Medications Docusate Sodium (Colace) 100 mg PO BID PRN PRN Reason: Constipation Last Admin: 10/16/19 19:09 Dose: 100 mg Ferrous Sulfate (Ferrous Sulfate) 324 mg PO WITHBREAKFAST RHETT Ibuprofen (Motrin) 600 mg PO Q6H PRN PRN Reason: mild pain or fever Last Admin: 10/17/19 01:59 Dose: 600 mg Naloxone HCl (Narcan) 0.1 mg IVPUSH SEECOMMENT PRN PRN Reason: Respiratory Depression Ondansetron HCl (Zofran) 4 mg IV Q8H PRN PRN Reason: Nausea/Vomiting Oxycodone/Acetaminophen (Percocet 325-5 Mg) 1 tab PO Q4H PRN PRN Reason: Pain (moderate 4-6) Last Admin: 10/17/19 06:16 Dose: 1 tab Oxycodone/Acetaminophen (Percocet 325-5 Mg) 2 tab PO Q4H PRN PRN Reason: Pain (severe 7-10) Discontinued Medications Cefazolin Sodium (Ancef) Confirm Administered Dose 3 gm .ROUTE .STK-MED ONE Stop: 10/15/19 07:18 Citric Acid/Sodium Citrate (Bicitra Solution) 30 ml PO ONETIME ONE Stop: 10/15/19 06:31 Last Admin: 10/15/19 06:51 Dose: 30 ml Citric Acid/Sodium Citrate (Bicitra Solution) Confirm Administered Dose 30 ml .ROUTE .STK-MED ONE Stop: 10/15/19 06:48 Last Admin: 10/16/19 11:21 Dose: Not Given Diphenhydramine HCl (Benadryl) 25 mg IVPUSH Q6H PRN PRN Reason: pruritis Stop: 10/15/19 12:00 Ephedrine Sulfate (Ephedrine Sulfate) 5 mg IVPUSH ASDIRECTED PRN PRN Reason: Hypotension Stop: 10/15/19 12:00 Ephedrine Sulfate (Ephedrine 25 Mg/5 Ml Syringe) Confirm Administered Dose 25 mg IV .STK-MED ONE Stop: 10/15/19 08:13 Ephedrine Sulfate (Ephedrine 25 Mg/5 Ml Syringe) Confirm Administered Dose 25 mg IV .STK-MED ONE Stop: 10/15/19 08:39 Fentanyl (Sublimaze) 50 mcg IVPUSH Q5M PRN PRN Reason: Pain Stop: 10/15/19 12:00 Haloperidol Lactate (Haldol) 1 mg IVPUSH ONETIME ONE Stop: 10/15/19 08:17 Last Admin: 10/15/19 11:40 Dose: Not Given Hydromorphone HCl (Dilaudid) 0.5 mg IVPUSH Q15M PRN PRN Reason: Pain (severe 7-10) Stop: 10/15/19 12:00 Cefazolin Sodium/Dextrose 2 gm (/ Premix) 50 mls @ 100 mls/hr IV ONETIME ONE Stop: 10/15/19 07:59 Last Admin: 10/16/19 00:56 Dose: Not Given Cefazolin Sodium/Dextrose 1 gm (/ Premix) 50 mls @ 100 mls/hr IV ONETIME ONE Stop: 10/15/19 07:59 Last Admin: 10/16/19 00:56 Dose: Not Given Lactated Ringer's (Ringers, Lactated) 1,000 mls @ 125 mls/hr IV ASDIRECTED RHETT Last Admin: 10/15/19 06:51 Dose: 125 mls/hr Oxytocin/Lactated Ringer's (Pitocin In Lr 10 Units/1,000 Ml) 10 unit in 1,000 mls @ 100 mls/hr IV ASDIRECTED [facility]; Protocol Phenylephrine HCl 1 mg/ Sodium (Chloride) 10.1 mls @ 1 mls/sec IV TITRATE RHETT; Protocol Stop: 10/15/19 12:00 Dextrose/Lactated Ringer's (Dextrose 5%-Lactated Ringers) 1,000 mls @ 125 mls/ hr IV ASDIRECTED RHETT Stop: 10/15/19 19:24 Last Admin: 10/15/19 12:38 Dose: 125 mls/hr Lactated Ringer's (Ringers, Lactated) Confirm Administered Dose 2,000 mls @ as directed .ROUTE .STK-MED ONE Stop: 10/15/19 07:18 Lactated Ringer's (Ringers, Lactated) Confirm Administered Dose 1,000 mls @ as directed .ROUTE .STK-MED ONE Stop: 10/15/19 06:48 Last Admin: 10/16/19 11:21 Dose: Not Given Ketorolac Tromethamine (Toradol) 30 mg IVPUSH Q6H [facility] Stop: 10/16/19 02:46 Last Admin: 10/16/19 04:18 Dose: 30 mg Ketorolac Tromethamine (Toradol) Confirm Administered Dose 30 mg .ROUTE .STK- MED ONE Stop: 10/15/19 07:18 Metoclopramide HCl (Reglan) 10 mg IVPUSH ONETIME ONE Stop: 10/15/19 06:31 Last Admin: 10/15/19 06:52 Dose: 10 mg Metoclopramide HCl (Reglan) Confirm Administered Dose 10 mg .ROUTE .STK-MED ONE Stop: 10/15/19 06:48 Last Admin: 10/16/19 11:21 Dose: Not Given Miscellaneous Medication (Phenylephrine 1 Mg/10 Ml-Ns) Confirm Administered Dose 1 mg IV .STK-MED ONE Stop: 10/15/19 07:18 Morphine Sulfate (Duramorph Pf) Confirm Administered Dose 10 mg .ROUTE .STK-MED ONE Stop: 10/15/19 07:19 Ondansetron HCl (Zofran) 4 mg IVPUSH ONETIME PRN PRN Reason: Nausea/Vomiting Stop: 10/15/19 12:00 Ondansetron HCl (Zofran) Confirm Administered Dose 4 mg .ROUTE .STK-MED ONE Stop: 10/15/19 07:18 Oxytocin (Pitocin) Confirm Administered Dose 10 unit .ROUTE .STK-MED ONE Stop: 10/15/19 07:18 Scopolamine (Transderm-Scop) 1.5 mg TRDERM ONETIME RHETT Stop: 10/15/19 16:00 Last Admin: 10/15/19 07:36 Dose: 1.5 mg Sodium Chloride (Saline Flush) 10 ml FLUSH ASDIRECTED PRN PRN Reason: Keep Vein Open
[2019-10-18] MEDS ORDERED: Ferrous Sulfate 324 MG Tab.EC PO SCH (07:00)
== END 2019-10-17 10:25 | disposition home or self-care (01) | DRG 540 ==
LOC: JD.OB 05:30
PROVIDERS: ADMIT Obstetrics & Gynecology; ATTEND Obstetrics & Gynecology
PROC: 10D00Z1 Extraction of Products of Conception, Low, Open Approach (ICD-10-PCS; principal; 2019-10-15)
DX: O34.211 Maternal care for low transverse scar from previous cesarean delivery (principal); Z37.0 Single live birth; Z3A.39 39 weeks gestation of pregnancy
CPT/HCPCS: 01961; 36415; 59025; 85025; 85027; 86592; 86850; 86900; 86901; 94762; A9270-GY; J0690; J1885; J2270; J2405; J2590; J2765; J7120; J7121